=== PATIENT | female | born 1970 | race Caucasian/White ===

== ENCOUNTER 2021-03-31 12:34 | Inpatient (IN) ==
[2021-03-31] MEDS ORDERED: Acetaminophen 325 MG TABLET PO PRN (17:54)
[2021-04-01] MEDS ORDERED: *HR* Labetalol 20 MG/4 ML SYRINGE IVP PRN (10:07)
[2021-04-01] MEDS ORDERED: Acetaminophen IV 1,000 MG/100 ML BAG IVPB ONE (10:07)
[2021-04-01] MEDS ORDERED: *HR* OxyCODONE Immed Rel 5 MG TABLET PO PRN (10:07)
[2021-04-01] MEDS ORDERED: Pregabalin 75 MG CAPSULE PO ONE (10:07)
[2021-04-01] MEDS ORDERED: *HR* HYDROmorphone 2 MG TABLET PO PRN (10:07)
[2021-04-01] MEDS ORDERED: *HR* HYDROmorphone (PF) 1 MG/ML SYRINGE IVP PRN (10:07)
[2021-04-01] MEDS ORDERED: Naloxone 0.4 MG/ML INJ IVP PRN (11:09)
[2021-04-01] MEDS ORDERED: *HR* HYDROcodone/Acet 5/325 mg TABLET PO PRN (11:09)
[2021-04-01] MEDS ORDERED: Ondansetron 4 MG/2 ML VIAL IVP PRN (11:09)
[2021-04-01] MEDS: Ipratropium/Albuterol Neb 3 ML IH SCH ×4 (11:37→23:57)
[2021-04-01] MEDS: Ketorolac 30 MG/ML VIAL IVP SCH ×3 (12:56→23:21)
[2021-04-01] MEDS: 0.9 % Sodium Chloride 1,000 ML IVC SCH ×2 (12:56→23:23)
[2021-04-01] MEDS: *HR* Heparin 5,000 UNIT/ML VIAL SQ SCH ×2 (15:21→21:30)
[2021-04-01] MEDS: Gabapentin 300 MG CAPSULE PO SCH ×2 (15:21→21:30)
[2021-04-01] MEDS: Sennosides/Docusate Sodium TABLET PO SCH (21:30)
[2021-04-01] MEDS: Famotidine 20 MG TABLET PO SCH (21:30)
[2021-04-02] MEDS: Ipratropium/Albuterol Neb 3 ML IH SCH ×6 (03:55→23:55)
[2021-04-02] MEDS: Ketorolac 30 MG/ML VIAL IVP SCH (04:13)
[2021-04-02] MEDS: *HR* Heparin 5,000 UNIT/ML VIAL SQ SCH ×3 (04:18→19:50)
[2021-04-02 06:47] LABS: BUN/Creatinine Ratio 28 (6-26); Blood Urea Nitrogen 18 mg/dL (6-20); Calcium 9.1 mg/dL (8.6-10.3); Carbon Dioxide 20 mEq/L (23-29); Chloride 105 mEq/L (98-107); Glucose 176 mg/dL (70-105); Magnesium 1.7 mg/dL (1.6-2.6); Osmolality,Calculated 288 (280-300); Potassium 4.6 mEq/L (3.5-5.1); Sodium 136 mEq/L (136-145); eGFR For African Americans > 60 (> 60); eGFR For Non-African Americans > 60 (> 60)
[2021-04-02] MEDS ORDERED: Ondansetron Oral Soln 2 MG/2.5 ML ORAL.SYG PO PRN (08:35)
[2021-04-02] MEDS: Gabapentin 300 MG CAPSULE PO SCH ×3 (09:19→19:50)
[2021-04-02] MEDS: Magnesium Oxide 400 MG TABLET PO SCH ×2 (09:20→19:50)
[2021-04-02] MEDS: Sennosides/Docusate Sodium TABLET PO SCH ×2 (09:20→19:50)
[2021-04-02] MEDS: Famotidine 20 MG TABLET PO SCH ×2 (09:20→19:50)
[2021-04-03] MEDS: Ipratropium/Albuterol Neb 3 ML IH SCH ×3 (04:11→11:28)
[2021-04-03] MEDS: *HR* Heparin 5,000 UNIT/ML VIAL SQ SCH (05:18)
[2021-04-03 07:09] VITALS: PULSE 83
[2021-04-03] MEDS: Gabapentin 300 MG CAPSULE PO SCH (07:34)
[2021-04-03] MEDS: Famotidine 20 MG TABLET PO SCH (07:35)
[2021-04-03] MEDS: Magnesium Oxide 400 MG TABLET PO SCH (07:35)
[2021-04-03 11:37] VITALS: BP 112/53; TEMP 98
[2021-04-03] MEDS: Sennosides/Docusate Sodium TABLET PO SCH (11:49)
[2021-04-03 12:43] VITALS: O2SAT 98
== END 2021-04-03 13:02 | disposition home or self-care (01) | DRG 163 ==
LOC: 2NNU 12:34 → EDSTATUS 04-01 07:45
PROVIDERS: ADMIT Thoracic Surgery (Cardiothoracic Vascular Surgery); ATTEND Thoracic Surgery (Cardiothoracic Vascular Surgery)